=== PATIENT | male | born 1995 | race Two or more races ===

== ENCOUNTER 2017-03-20 21:40 | Emergency (ER) | payer BC, MEDICAID ==
[~2017-03-20] VITALS: Ht 167.6 cm; Wt 87.0 kg
[~2017-03-20 21:40] MED LIST: OXYC-302 PO
[2017-03-20 21:43] VITALS: BP 150/86
== END 2017-03-20 23:12 | disposition home or self-care (01) ==
LOC: ED 23:00
DX: J30.2 Other seasonal allergic rhinitis (principal)
CPT/HCPCS: 99283